=== PATIENT | female | born 2000 | race Hispanic/Latino ===

== ENCOUNTER 2024-11-23 01:43 | Emergency (ER) | payer SELFPAY ==
[~2024-11-23] VITALS: Ht 160 cm; Wt 63.5 kg
[2024-11-23] MEDS ORDERED: ISOP30DR11 OT (02:10)
--- NOTE | 2024-11-23 02:11 | ERN ---
General Chief Complaint: Other Problems Stated Complaint: RT EAR PROBLEM Time Seen by MD: 01:57 Time Seen by Midlevel: 01:57 Source: patient History of Present Illness Initial Comments Patient is a 24-year-old female with no significant past medical history presenting to the emergency department for evaluation of ear fullness to bilateral ears. Patient has been using a camera device to remove the wax from her ears but was unsuccessful. Today she reports a feeling of being under w ater. She reports muffled ears bilaterally. Denies any other symptoms. Denies any recent swimming. Denies any pain. Allergies: Coded Allergies: No Known Allergies (Unverified Allergy, Unknown, 11/23/24) Past Medical History Past Medical History: No Pertinent History Past Surgical History: None Female( History) LMP: Oct 27, 2024 ROS Dictation CONSTITUTIONAL: Negative except for HPI HEAD/FACE: Negative except for HPI EENT: Negative except for HPI RESPIRATORY: Negative except for HPI GASTROINTESTINAL/ABDOMINAL: Negative except for HPI GENITOURINARY: Negative except for HPI MUSCULOSKELETAL: Negative except for HPI INTEGUMENTARY: Negative except for HPI NEUROLOGICAL/PSYCH: Negative except for HPI HEMATOLOGIC/LYMPHATIC: Negative except for HPI All Systems Negative, Except as noted above. 13 point review of systems assessed and all negative except for above. Physical Exam Physical Exam Dictation Vital Signs reviewed General Appearance: Alert, oriented x 3, no acute distress, well developed, nourished. Head and Face: non-traumatic. Eyes: PERRL, pink conjunctivas, eyelid no trauma, anterior chamber with arcus senilis. Ears: Cerumen impaction to bilateral ears Nose: No discharge, no bleeding. Oropharynx: Mouth normal, tongue pink, pharynx clear,no erythema, tonsils no exudates, no abscesses noted, mucous membrane moist Neck: Supple, non-tender, no thyromegaly, no masses, no JVD, no bruits Breast:Deferred Chest:No tenderness, no crepitus, no paradoxical movement, no retractions Lungs:Clear, well-ventilated, symmetric, no rales, no wheezing, no rhonchi, no stridor, good breath sounds bilaterally Heart: Regular rate, regular rhythm, no murmur, no gallops Vascular: no peripheral edema, Abdomen: Soft, positive bowel sounds, nondistended, no guarding, nontender, no rebound, no masses no hepatomegaly, no splenomegaly, no Verduzco's sign, no hernias. Rectal: Deferred Genital: Deferred Neurological: Normal speech, motor function intact, sensory function intact Musculoskeletal: Neck nontender, full range of motion, back nontender, full range of motion, Extremities: nontender, full range of motion Skin: Color pink, dry, no turgor, no rash, no lacerations, no abrasions, no contusions. Lymphatic: Deferred MDM MDM: Differential diagnosis: Otitis media, otitis externa, cerumen impaction There are no social concerns with this patient. Prescription drug management Prescriptions will include: Debrox Medical management and examination interpretation discussions were had by me with other qualified healthcare professionals as indicated for the patient's care. ED Course Vital Signs Date Time Temp Pulse Resp B/P (MAP) Pulse Ox O2 Delivery O2 Flow Rate FiO2 11/23/24 01:45 97.2 60 18 138/69 100 Room Air DX & DISP Disposition: Discharge Departure Impression: Primary Impression: Cerumen impaction Condition: Stable Scripts Isopropyl Alcohol in Glycerin (Debrox Swimmer's Ear Drop) 95 %-5 % Drops 30 ML OT BID, #2 DROP Prov: ADRIANE LAZARO 11/23/24 Additional Instructions: You have a large amount of wax in both of your ears. Please use Debrox eardrops daily for the next 2-3 days. After, you may follow up primary care doctor or return to the ER for an ear lavage. Referrals: SELF,REFERRAL (PCP) Time of Disposition: 02:09 I have reviewed the case, and I agree with, Diagnosis and Plan I performed the substantive portion of the visit. I have reviewed and personally made and approve the management plan that is documented in the note by myself or the LETICIA. I acknowledge for responsibility for the patient's management plan. ADRIANE LAZARO Nov 23, 2024 02:11
[2024-11-23 02:15] VITALS: BP 124/77; PULSE 75; RESP 17; TEMP 97.8; O2SAT 96
== END 2024-11-23 02:26 | disposition home or self-care (01) ==
LOC: EDH 01:43
DX: H61.23 Impacted cerumen, bilateral (principal)
CPT/HCPCS: 99282